=== PATIENT | female | born 1975 | race American Indian/Alaskan Native ===

== ENCOUNTER 2018-12-22 19:07 | Emergency (ER) | payer MEDICAID ==
--- NOTE | 2018-12-22 21:17 | Event Note ---
ED Screening Note Date of service: 12/22/18 Time: 21:13 ED Screening Note: pt c/o right sided abd pain since Friday. She states its constant but waxes and waynes. She reports associated vag bleeding since friday, reports 2 pads per day on average. + clots. Went to OBGYN today about her symptoms, recommend outpt US scheduled for the but pt states she cannot wait that long. No n/v, no bowel changes. last normal MC was december 02. Denies fever or chills. This initial assessment/diagnostic orders/clinical plan/treatment(s) is/are subject to change based on patients health status, clinical progression and re- assessment by fellow clinical providers in the ED. Further treatment and workup at subsequent clinical providers discretion. Patient/guardian urged not to elope from the ED as their condition may be serious if not clinically assessed and managed. Initial orders include: Labs UA
[2018-12-22 21:48] LABS: Basophils # (Auto) 0.1 K/mm3 (0.0-0.1); Basophils % (Auto) 0.9 % (0.0-1.8); Eosinophils # (Auto) 0.1 K/mm3 (0.0-0.4); Eosinophils % (Auto) 1.5 % (0.0-4.3); Hematocrit 33.4 % (30.3-42.9); Hemoglobin 10.9 gm/dl (10.1-14.3); Lymphocytes # (Auto) 2.2 K/mm3 (1.2-5.4); Lymphocytes % (Auto) 28.1 % (13.4-35.0); Mean Corpuscular HGB Conc 33 % (30-34); Mean Corpuscular Volume 89 fl (79-97); Monocytes # (Auto) 0.6 K/mm3 (0.0-0.8); Monocytes % (Auto) 8.3 % (0.0-7.3); Platelet Count 326 K/mm3 (140-440); Red Blood Count 3.77 M/mm3 (3.65-5.03); Red Cell Distribution Width 16.4 % (13.2-15.2)
[2018-12-22 22:09] LABS: Alanine Aminotransferase 5 units/L (7-56); Albumin 4.2 g/dL (3.9-5); BUN/Creatinine Ratio 13; Blood Urea Nitrogen 8 mg/dL (7-17); Calcium 9.4 mg/dL (8.4-10.2); Hemolysis Index 12
[2018-12-22] MEDS ORDERED: KETOROLAC 30 MG/1 ML INJ IV ONE (22:48)
--- NOTE | 2018-12-23 00:24 | Emergency Department Report ---
ED Abdominal Pain HPI - General Chief Complaint: Abdominal Pain Stated Complaint: ABD PAIN/VAGINAL BLEEDING Time Seen by Provider: 12/22/18 21:12 Source: patient Mode of arrival: Ambulatory Limitations: No Limitations - History of Present Illness Initial Comments: 43 year old female with past medical history hypertension, high cholesterol, C- section 3, and previous tubal ligation presents to the hospital complaining of right lower abdominal pain 5 days. Pain feels like a ripping and tearing sensation. Pain is constant, rated 10/10 in intensity, worse with palpation and movement. No alleviating factors reported. 2 days ago patient developed vaginal bleeding. Last LMP 12/01/2018. Patient using 2 pads a day since onset. Patient saw OB today and had a scheduled ultrasound for November 26. Patient here today because she cannot take the pain. - Related Data Previous Rx's Medication Instructions Recorded Last Taken Type HYDROcodone/APAP 5-325 [Pass Christian 1 each PO Q6HR PRN #20 tablet 12/23/18 Unknown Rx 5/325] Ibuprofen [Motrin] 800 mg PO Q8HR PRN #30 tablet 12/23/18 Unknown Rx Sulfamethoxazole/Trimethoprim 1 each PO BID #10 tablet 12/23/18 Unknown Rx [Bactrim DS TAB] Allergies Allergy/AdvReac Type Severity Reaction Status Date / Time No Known Allergies Allergy Verified 12/22/18 19:23 ED Review of Systems ROS: Stated complaint: ABD PAIN/VAGINAL BLEEDING Other details as noted in HPI Comment: All other systems reviewed and negative ED Past Medical Hx - Past Medical History Previous Medical History?: Yes Hx Hypertension: Yes Additional medical history: high chol - Surgical History Past Surgical History?: Yes Additional Surgical History: c-sec x 3, tubal ligation - Social History Smoking Status: Never Smoker Substance Use Type: None - Medications Home Medications: Home Medications Medication Instructions Recorded Confirmed Last Taken Type HYDROcodone/APAP 5-325 [Pass Christian 1 each PO Q6HR PRN #20 tablet 12/23/18 Unknown Rx 5/325] Ibuprofen [Motrin] 800 mg PO Q8HR PRN #30 tablet 12/23/18 Unknown Rx Sulfamethoxazole/Trimethoprim 1 each PO BID #10 tablet 12/23/18 Unknown Rx [Bactrim DS TAB] ED Physical Exam - General Limitations: No Limitations - Other Other exam information: General: No acute distress Head: Atraumatic Eyes: normal appearance ENT: Moist mucous membranes Neck: Normal appearance, no midline tenderness Chest: Clear to auscultation bilaterally CV: Regular rate and rhythm Abdomen: Soft, normal bowel sounds, right mid and lower abdominal tenderness to palpation, nondistended, no rebound or guarding Back: Normal inspection Extremity: Normal inspection infection, full range of motion Neuro: Alert O x 3, no facial asymmetry, speech clear, no gross motor sensory deficit Psych: Appropriate behavior Skin: No rash ED Course Vital Signs 12/22/18 12/23/18 19:43 00:30 Temperature 98.8 F 98.4 F Pulse Rate 88 79 Respiratory 16 20 Rate Blood Pressure 172/102 Blood Pressure 165/97 [Left] O2 Sat by Pulse 99 100 Oximetry ED Medical Decision Making - Lab Data Result diagrams: 12/22/18 21:28 12/22/18 21:28 Lab Results 12/22/18 12/22/18 12/22/18 Range/Units 21:28 21:28 21:28 WBC 7.7 (4.5-11.0) K/mm3 RBC 3.77 (3.65-5.03) M/mm3 Hgb 10.9 (10.1-14.3) gm/dl Hct 33.4 (30.3-42.9) % MCV 89 (79-97) fl MCH 29 (28-32) pg MCHC 33 (30-34) % RDW 16.4 H (13.2-15.2) % Plt Count 326 (140-440) K/mm3 Lymph % (Auto) 28.1 (13.4-35.0) % [place] % (Auto) 8.3 H (0.0-7.3) % Eos % (Auto) 1.5 (0.0-4.3) % Baso % (Auto) 0.9 (0.0-1.8) % Lymph # 2.2 (1.2-5.4) K/mm3 [place] # 0.6 (0.0-0.8) K/mm3 Eos # 0.1 (0.0-0.4) K/mm3 Baso # 0.1 (0.0-0.1) K/mm3 Seg Neutrophils % 61.2 (40.0-70.0) % Seg Neutrophils # 4.7 (1.8-7.7) K/mm3 Sodium 140 (137-145) mmol/L Potassium 3.6 (3.6-5.0) mmol/L Chloride 103.6 (98-107) mmol/L Carbon Dioxide 23 (22-30) mmol/L Anion Gap 17 mmol/L BUN 8 (7-17) mg/dL Creatinine 0.6 L (0.7-1.2) mg/dL Estimated GFR > 60 ml/min BUN/Creatinine Ratio 13 % Glucose 104 H (65-100) mg/dL Calcium 9.4 (8.4-10.2) mg/dL Total Bilirubin 0.30 (0.1-1.2) mg/dL AST 11 (5-40) units/L ALT 5 L (7-56) units/L Alkaline Phosphatase 87 (35-129) units/L Total Protein 7.5 (6.3-8.2) g/dL Albumin 4.2 (3.9-5) g/dL Albumin/Globulin Ratio 1.3 % Lipase 21 (13-60) units/L HCG, Qual (Negative) Urine Color (Yellow) Urine Turbidity (Clear) Urine pH (5.0-7.0) Ur Specific [place] (1.003-1.030) Urine Protein (Negative) mg/dL Urine Glucose (UA) (Negative) mg/dL Urine Ketones (Negative) mg/dL Urine Blood (Negative) Urine Nitrite (Negative) Urine Bilirubin (Negative) Urine Urobilinogen (<2.0) mg/dL Ur Leukocyte Esterase (Negative) Urine WBC (Auto) (0.0-6.0) /HPF Urine RBC (Auto) (0.0-6.0) /HPF U Epithel Cells (Auto) (0-13.0) /HPF Urine Bacteria (Auto) (Negative) /HPF Urine Mucus /HPF 12/22/18 12/23/18 Range/Units 21:28 01:06 WBC (4.5-11.0) K/mm3 RBC (3.65-5.03) M/mm3 Hgb (10.1-14.3) gm/dl Hct (30.3-42.9) % MCV (79-97) fl MCH (28-32) pg MCHC (30-34) % RDW (13.2-15.2) % Plt Count (140-440) K/mm3 Lymph % (Auto) (13.4-35.0) % [place] % (Auto) (0.0-7.3) % Eos % (Auto) (0.0-4.3) % Baso % (Auto) (0.0-1.8) % Lymph # (1.2-5.4) K/mm3 [place] # (0.0-0.8) K/mm3 Eos # (0.0-0.4) K/mm3 Baso # (0.0-0.1) K/mm3 Seg Neutrophils % (40.0-70.0) % Seg Neutrophils # (1.8-7.7) K/mm3 Sodium (137-145) mmol/L Potassium (3.6-5.0) mmol/L Chloride (98-107) mmol/L Carbon Dioxide (22-30) mmol/L Anion Gap mmol/L BUN (7-17) mg/dL Creatinine (0.7-1.2) mg/dL Estimated GFR ml/min BUN/Creatinine Ratio % Glucose (65-100) mg/dL Calcium (8.4-10.2) mg/dL Total Bilirubin (0.1-1.2) mg/dL AST (5-40) units/L ALT (7-56) units/L Alkaline Phosphatase (35-129) units/L Total Protein (6.3-8.2) g/dL Albumin (3.9-5) g/dL Albumin/Globulin Ratio % Lipase (13-60) units/L HCG, Qual Negative (Negative) Urine Color Yellow (Yellow) Urine Turbidity Slightly-cloudy (Clear) Urine pH 5.0 (5.0-7.0) Ur Specific [place] 1.028 (1.003-1.030) Urine Protein 100 mg/dl (Negative) mg/dL Urine Glucose (UA) Neg (Negative) mg/dL Urine Ketones Neg (Negative) mg/dL Urine Blood Lg (Negative) Urine Nitrite Neg (Negative) Urine Bilirubin Neg (Negative) Urine Urobilinogen < 2.0 (<2.0) mg/dL Ur Leukocyte Esterase Neg (Negative) Urine WBC (Auto) 40.0 H (0.0-6.0) /HPF Urine RBC (Auto) > 182.0 (0.0-6.0) /HPF U Epithel Cells (Auto) 6.0 (0-13.0) /HPF Urine Bacteria (Auto) 1+ (Negative) /HPF Urine Mucus 3+ /HPF - Radiology Data Radiology results: report reviewed ULTRASOUND PELVIS INDICATION / CLINICAL INFORMATION: vag bleeding, right sided ab pain. TECHNIQUE: Transabdominal and Transvaginal. Duplex Color Doppler used: Yes. COMPARISON: None available FINDINGS: UTERUS: Present. - Appearance (if present): Enlarged and heterogeneous. - Size in cm (if present): 15.5 x 7.2 x 7.3. - Endometrial Complex (if present): Displaced by fibroids.. Thickness in cm (if measured) = 1.3 - Mass lesions: Multiple fibroids. The largest fibroid is in the fundus measuring 6.5 x 6.1 x 5.6 cm. Posterior, slightly pedunculated f ibroid measuring 4.5 x 4.1 x 5.0 cm. - Additional findings: Small nabothian cyst. RIGHT ADNEXA: No significant ovarian cyst or mass. Normal color Doppler blood flow. LEFT ADNEXA: No significant ovarian cyst or mass. Normal color Doppler blood flow. URINARY BLADDER: No significant abnormality. FREE FLUID: None. ADDITIONAL FINDINGS: None. IMPRESSION: 1. Enlarged uterus containing several fibroids. ULTRASOUND PELVIS INDICATION / CLINICAL INFORMATION: vag bleeding, right sided ab pain. TECHNIQUE: Transabdominal and Transvaginal. Duplex Color Doppler used: Yes. COMPARISON: None available FINDINGS: UTERUS: Present. - Appearance (if present): Enlarged and heterogeneous. - Size in cm (if present): 15.5 x 7.2 x 7.3. - Endometrial Complex (if present): Displaced by fibroids.. Thickness in cm (if measured) = 1.3 - Mass lesions: Multiple fibroids. The largest fibroid is in the fundus measuring 6.5 x 6.1 x 5.6 cm. Posterior, slightly pedunculated fibroid measuring 4.5 x 4.1 x 5.0 cm. - Additional findings: Small nabothian cyst. RIGHT ADNEXA: No significant ovarian cyst or mass. Normal color Doppler blood flow. LEFT ADNEXA: No significant ovarian cyst or mass. Normal color Doppler blood flow. URINARY BLADDER: No significant abnormality. FREE FLUID: None. ADDITIONAL FINDINGS: None. IMPRESSION: 1. Enlarged uterus containing several fibroids. CT ABDOMEN AND PELVIS WITH CONTRAST INDICATION / CLINICAL INFORMATION: rlq pain, r pelvic pain. Symptoms for 2 days. TECHNIQUE: Axial CT images were obtained through the abdomen and pelvis after 100 mL Omnipaque [address] scans at this location are performed using CT dose reduction for ALARA by means of automated exposure control. COMPARISON: Ultrasound pelvis dated 12/22/18 FINDINGS: LOWER CHEST: No significant abnormality. LIVER: No significant abnormality. GALLBLADDER: No significant abnormality. BILE DUCTS: No significant abnormality. PANCREAS: No significant abnormality. SPLEEN: No significant abnormality. ADRENALS: No significant abnormality. RIGHT KIDNEY and URETER: No significant abnormality. LEFT KIDNEY and URETER: No significant abnormality. STOMACH and SMALL BOWEL: No significant abnormality. COLON: No significant abnormality. APPENDIX: No significant abnormality. PERITONEUM: No free fluid. No free air. No fluid collection. LYMPH NODES: No significant adenopathy. AORTA and ARTERIES: No significant abnormality. IVC and VEINS: No significant ab normality. URINARY BLADDER: No significant abnormality. REPRODUCTIVE ORGANS: Uterus is enlarged containing several fibroids as noted on prior ultrasound. Multiloculated right adnexal cysts which was not visualized on the prior study likely due to high location in the pelvis. This multiloculated cystic lesion measures 3.2 x 3.3 x 4.1 cm. ADDITIONAL FINDINGS: None. SKELETAL SYSTEM: No significant abnormality. IMPRESSION: 1. No inflammatory process or bowel obstruction. Normal appendix. 2. Enlarged uterus containing several fibroids. No change since prior ultrasound. 3. Multiloculated right adnexal cystic lesion which was not visualized on recent ultrasound. Follow-up pelvic ultrasound in 2 months is recommended. - Medical Decision Making pt pain likely due to uterine fibroids and right ovarian cyst. Patient received Toradol with some relief in pain. And unable to received additional medication because she is driving home Additional narcotic pain medicine were prescribed. Patient will be provided a copy of her imaging reports as well as images or disc since her [employer] doctor is located in the [facility] and not affiliated here. UA shows possible UTI. bactrim given - Differential Diagnosis ovarian cyst, ectopic , appendicitis, renal colic, dysmenorrhea Critical Care Time: No Critical care attestation.: If time is entered above; I have spent that time in minutes in the direct care of this critically ill patient, excluding procedure time. ED Disposition Clinical Impression: Uterine fibroid, Dysmenorrhea, Right ovarian cyst, UTI (urinary tract infection) Disposition: TO HOME OR SELFCARE Is pt being admited?: No Does the pt Need Aspirin: No Condition: Stable Instructions: Uterine Fibroids (ED), Ovarian Cyst (ED), Dysmenorrhea (ED), Urinary Tract Infection in Women (ED) Additional Instructions: Take the medication as prescribed. Follow-up with your doctor or doctor/clinic provided. Return if symptoms worsen as indicated by your discharge instructions. 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
--- NOTE | 2018-12-23 01:04 | Ultrasound Report ---
ULTRASOUND PELVIS INDICATION / CLINICAL INFORMATION: vag bleeding, right sided ab pain. TECHNIQUE: Transabdominal and Transvaginal. Duplex Color Doppler used: Yes. COMPARISON: None available FINDINGS: UTERUS: Present. - Appearance (if present): Enlarged and heterogeneous. - Size in cm (if present): 15.5 x 7.2 x 7.3. - Endometrial Complex (if present): Displaced by fibroids.. Thickness in cm (if measured) = 1.3 - Mass lesions: Multiple fibroids. The largest fibroid is in the fundus measuring 6.5 x 6.1 x 5.6 cm. Posterior, slightly pedunculated fibroid measuring 4.5 x 4.1 x 5.0 cm. - Additional findings: Small nabothian cyst. RIGHT ADNEXA: No significant ovarian cyst or mass. Normal color Doppler blood flow. LEFT ADNEXA: No significant ovarian cyst or mass. Normal color Doppler blood flow. URINARY BLADDER: No significant abnormality. FREE FLUID: None. ADDITIONAL FINDINGS: None. IMPRESSION: 1. Enlarged uterus containing several fibroids. Signer Name: Elena Carrasquillo MD Signed: 12/23/2018 12:59 AM Workstation Name: [id number]
[2018-12-23 01:07] VITALS: BP 165/97
--- NOTE | 2018-12-23 01:47 | Cat Scan Report ---
CT ABDOMEN AND PELVIS WITH CONTRAST INDICATION / CLINICAL INFORMATION: rlq pain, r pelvic pain. Symptoms for 2 days. TECHNIQUE: Axial CT images were obtained through the abdomen and pelvis after 100 mL Omnipaque [address] scans at this location are performed using CT dose reduction for ALARA by means of automated exposure control. COMPARISON: Ultrasound pelvis dated 12/22/18 FINDINGS: LOWER CHEST: No significant abnormality. LIVER: No significant abnormality. GALLBLADDER: No significant abnormality. BILE DUCTS: No significant abnormality. PANCREAS: No significant abnormality. SPLEEN: No significant abnormality. ADRENALS: No significant abnormality. RIGHT KIDNEY and URETER: No significant abnormality. LEFT KIDNEY and URETER: No significant abnormality. STOMACH and SMALL BOWEL: No significant abnormality. COLON: No significant abnormality. APPENDIX: No significant abnormality. PERITONEUM: No free fluid. No free air. No fluid collection. LYMPH NODES: No significant adenopathy. AORTA and ARTERIES: No significant abnormality. IVC and VEINS: No significant abnormality. URINARY BLADDER: No significant abnormality. REPRODUCTIVE ORGANS: Uterus is enlarged containing several fibroids as noted on prior ultrasound. Mul tiloculated right adnexal cysts which was not visualized on the prior study likely due to high locati on in the pelvis. This multiloculated cystic lesion measures 3.2 x 3.3 x 4.1 cm. ADDITIONAL FINDINGS: None. SKELETAL SYSTEM: No significant abnormality. IMPRESSION: 1. No inflammatory process or bowel obstruction. Normal appendix. 2. Enlarged uterus containing several fibroids. No change since prior ultrasound. 3. Multiloculated right adnexal cystic lesion which was not visualized on recent ultrasound. Follow-u p pelvic ultrasound in 2 months is recommended. Signer Name: Elena Carrasquillo MD Signed: 12/23/2018 1:42 AM Workstation Name: [id number]
[2018-12-23 01:52] LABS: Bacteria,Urine 1+ /HPF (Negative); Bilirubin,Urine NEG (Negative); Blood,Urine LG (Negative); Color,Urine Yellow (Yellow); Mucus,Urine 3+ /HPF; Urobilinogen,Urine < 2.0 mg/dL (<2.0)
[2018-12-23 02:05] LABS: RBC,Urine > 182.0 /HPF (0.0-6.0)
[2018-12-23] MEDS ORDERED: SULFAMETHOXAZOLE/TRIMETHOPRIM 800/160MG DS TAB PO ONE (02:09)
== END 2018-12-23 02:30 | disposition home or self-care (01) ==
LOC: ED 19:07
DX: N94.6 Dysmenorrhea, unspecified (principal); N83.291 Other ovarian cyst, right side; D25.9 Leiomyoma of uterus, unspecified; N39.0 Urinary tract infection, site not specified; I10 Essential (primary) hypertension; E78.00 Pure hypercholesterolemia, unspecified; Z98.51 Tubal ligation status; Z79.899 Other long term (current) drug therapy
CPT/HCPCS: 36415; 74177; 76830; 76856; 80053; 81001; 83690; 84703; 85025; 87086; 96374; 99284; J1885; Q9967